=== PATIENT | female | born 1970 | race Caucasian/White ===

== ENCOUNTER → 2016-12-08 | Outpatient (CLI) | payer OTHER ==
--- NOTE | 2016-12-08 10:21 | MM ---
Reason for exam: clinical finding. Last mammogram was performed 7 years and 10 months ago. History: Family history of breast cancer in maternal aunt at age 60. Indicated problem(s): palpable abnormality in the right breast. 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 [facility] Diagnostic Mammo w CAD JULIANNA Bilateral CC and MLO view(s) were taken. Prior study comparison: February 18, 2009, left breast digital mammogram. April 13, 2008, mammogram, performed at [facility]. The breast tissue is heterogeneously dense. This may lower the sensitivity of mammography. Finding: There are typically benign round, regional calcifications in both breasts. These results were verbally communicated with the patient and result sheet given to the patient on 12/08/16. ASSESSMENT: Benign, BI-RAD 2 RECOMMENDATION: Routine screening mammogram of both breasts in 1 year.
--- NOTE | 2016-12-08 10:23 | USB ---
Reason for exam: clinical finding. History: Family history of breast cancer in maternal aunt at age 60. Indicated problem(s): palpable abnormality in the right breast. US Breast RT Right breast ultrasound including all four quadrants, the retroareolar region and axilla demonstrates a 0.5 x 0.4 x 0.5cm oval, cystic lesion at 1 o'clock, a 0.9 x 0.7 x 0.9cm oval, cystic lesion at 1 o'clock, a 0.4 x 0.4 x 0.4cm oval lesion too small to characterize at 5 o'clock, a 0.9 x 0.7 x 0.9cm oval, cystic lesion at 7 o'clock and a 0.6 x 0.6 x 0.5cm oval, cystic lesion with internal echo at 10 o'clock. Fibrocystic change. These results were verbally communicated with the patient and result sheet given to the patient on 12/08/16. ASSESSMENT: Benign, BI-RAD 2 RECOMMENDATION: Routine screening mammogram of both breasts in 1 year.
== END | disposition home or self-care (01) ==
LOC: RADMAMWWP 08:51
PROVIDERS: ATTEND Family Medicine
DX: N63 Unspecified lump in breast (principal); N64.4 Mastodynia
CPT/HCPCS: 76641; G0204

== ENCOUNTER 2021-06-30 08:13 | Day surgery (SDC) | payer OTHER ==
[2021-06-29 14:56] VITALS: BMI 31.6
[~2021-06-30 08:13] MED LIST: LACTATED RINGERS 1,000 ML IV SCH
[2021-06-30 09:02] VITALS: RESP 16; TEMP 96.6
[2021-06-30] MEDS ORDERED: ONDANSETRON 4 MG/2 ML VIAL IVP ONE (09:21)
[2021-06-30] MEDS ORDERED: ONDANSETRON 4 MG/2 ML VIAL ONE (09:22)
[2021-06-30] MEDS ORDERED: PROPOFOL 10 MG/ML 20 ML VIAL IV ONE (10:20)
--- NOTE | 2021-06-30 10:24 | P.GSHP ---
History of Present Illness H&P Date: 06/30/21 Chief Complaint: Screening colonoscopy 's 51-year-old female who presents today for screening colonoscopy. Patient denies any significant GI complaints. Past Medical History Past Medical History: GERD/Reflux, Hypertension Additional Past Medical History / Comment(s): hard to breathe at times when "belly is full and occas pain when swallowing"thyroid nodule and cysts on thyroid,change in bowel,discomfort in abdomen,hx kidney stones, bilateral ovarian cysts History of Any Multi-Drug Resistant Organisms: None Reported Past Surgical History: Breast Surgery, Cholecystectomy, Hysterectomy, Orthopedic Surgery Additional Past Surgical History / Comment(s): L elbow surg., cystoscopy, laparoscopy, alise fundoplasty for hiatal hernia in April 2014, breast biopsy Past Anesthesia/Blood Transfusion Reactions: Motion Sickness, Postoperative Nausea & Vomiting (PONV) Additional Past Anesthesia/Blood Transfusion Reaction / Comment(s): hx aspirating during EGD & acquiring pneumonia Smoking Status: Never smoker - Past Family History Mother Family Medical History: Cancer Father Family Medical History: Hypertension Sister(s) Family Medical History: Cancer, Diabetes Mellitus, Hypertension Additional Family Medical History / Comment(s): cervical CA Brother(s) Family Medical History: Diabetes Mellitus Medications and Allergies Home Medications Medication Instructions Recorded Confirmed Type hydroCHLOROthiazide [Hydrodiuril] 50 mg PO DAILY 12/13/15 06/29/21 History Losartan/Hydrochlorothiazide 1 tab PO DAILY 06/29/21 06/29/21 History [Losartan-Hctz 100-25 mg Tab] Meclizine HCl 25 mg PO DAILY PRN 06/29/21 06/29/21 History Ondansetron [Zofran] 4 mg PO Q8HR PRN 06/30/21 06/30/21 History Allergies Allergy/AdvReac Type Severity Reaction Status Date / Time codeine Allergy "blacked Verified 06/29/21 14:46 out" hydromorphone HCl Allergy Chest Pain Verified 06/29/21 14:46 [From Dilaudid] Penicillins Allergy Unknown Verified 06/30/21 08:59 Childhood Surgical - Exam Vital Signs Temp Pulse Resp BP Pulse Ox 96.6 F L 67 16 121/78 95 06/30/21 09:00 06/30/21 09:00 06/30/21 09:00 06/30/21 09:00 06/30/21 09:00 - General well developed, well nourished, no distress - Eyes PERRL - ENT normal pinna - Neck no masses - Respiratory normal expansion - Cardiovascular Rhythm: regular - Abdomen Abdomen: soft, non tender Assessment and Plan Assessment: We'll perform screening colonoscopy.
--- NOTE | 2021-06-30 10:46 | P.OP ---
Date of Procedure: 06/30/21 Preoperative Diagnosis: Constipation GERD Postoperative Diagnosis: Antral gastritis No evidence of hiatal hernia Mild diverticulosis Procedure(s) Performed: EGD Colonoscopy Anesthesia: MAC Surgeon: Anthony Jimenez Pathology: other Condition: stable Description of Procedure: Patient's placed on the endoscopy table in the lateral position. She received IV sedation. The gastroscope placed oropharynx passed in the esophagus into the stomach. Scope was then placed through the pylorus. First and second portion of the duodenum appeared normal. Scope summer back and the antrum this is minimally inflamed. A biopsies performed. Scope was unretroflexed and remainder stomach appeared normal. There is no significant hiatal hernia seen. The GE junction was at 40 cm. The distal esophagus appeared normal. The proximal esophagus. Normal. Scope was withdrawn for patient. Next digital rectal exam was performed which revealed no abnormalities. The flexible colonoscope was then placed patient anus and passed throughout the entire colon. The ileocecal valve was visualized. The cecum, ascending and transverse colon appeared normal. In the descending; was mild diverticular changes. Scope was then brought back the rectum and this appeared normal. Scope was withdrawn for patient.
[2021-06-30] MEDS ORDERED: IV FLUID CONTINUATION 100 ML IV ONE (10:49)
[2021-06-30 11:06] VITALS: BP 135/69; PULSE 49
== END 2021-06-30 11:53 | disposition home or self-care (01) ==
LOC: ORWHC2ENDO 08:13
PROVIDERS: ATTEND Surgery
DX: K29.50 Unspecified chronic gastritis without bleeding (principal); K57.90 Diverticulosis of intestine, part unspecified, without perforation or abscess without bleeding; K21.9 Gastro-esophageal reflux disease without esophagitis; I10 Essential (primary) hypertension; Z88.0 Allergy status to penicillin; Z88.5 Allergy status to narcotic agent; Z79.899 Other long term (current) drug therapy; Z87.442 Personal history of urinary calculi; Z82.49 Family history of ischemic heart disease and other diseases of the circulatory system; Z83.3 Family history of diabetes mellitus; Z90.49 Acquired absence of other specified parts of digestive tract
CPT/HCPCS: 45378; 43239; 81025; 88305; J2405; J2704

== ENCOUNTER 2021-07-18 18:15 | Emergency (ER) | payer OTHER ==
[2021-07-18] MEDS ORDERED: ACETAMINOPHEN TAB 325 MG TAB PO STA (20:18)
[2021-07-18] MEDS ORDERED: IBUPROFEN 600 MG TAB PO STA (20:18)
--- NOTE | 2021-07-18 20:42 | XR ---
EXAMINATION TYPE: XR chest 2V DATE OF EXAM: 07/18/2021 COMPARISON: 02/15/2016 HISTORY: Chest pain TECHNIQUE: 2 views FINDINGS: Heart and mediastinum are normal. Lungs are clear of consolidation. There is small linear d ensity right lung base. There are no hilar masses. Bony thorax is intact. IMPRESSION: Mild subsegmental atelectasis at the anterior right lung base. There is overall improved aeration of the lungs compared to old exam. Normal heart.
--- NOTE | 2021-07-18 20:43 | ED ---
General Adult HPI - General Chief complaint: Weakness Stated complaint: covid exposure, wants antibodies Time Seen by Provider: 07/18/21 20:01 Source: patient, RN notes reviewed Mode of arrival: ambulatory Limitations: no limitations - History of Present Illness Initial comments: Patient is a 51-year-old female that presents to emergency room complaining of fever, cough, headache, upper respiratory tract symptoms for the past several days. She notes that her and his cousin recently tested positive for Covid so she decided come in to get evaluated. She notes that she knew she was Covid-positive based off of her symptoms. She notes that she does want to the monoclonal antibodies. She was otherwise well-appearing in no distress. She de nied chest pain nausea vomiting diarrhea constipation fatigue chills. - Related Data Home Medications Medication Instructions Recorded Confirmed hydroCHLOROthiazide [Hydrodiuril] 50 mg PO DAILY 12/13/15 06/29/21 Losartan/Hydrochlorothiazide 1 tab PO DAILY 06/29/21 06/29/21 [Losartan-Hctz 100-25 mg Tab] Meclizine HCl 25 mg PO DAILY PRN 06/29/21 06/29/21 Ondansetron [Zofran] 4 mg PO Q8HR PRN 06/30/21 06/30/21 Allergies Allergy/AdvReac Type Severity Reaction Status Date / Time codeine Allergy "blacked Verified 07/18/21 19:10 out" hydromorphone HCl Allergy Chest Pain Verified 07/18/21 19:10 [From Dilaudid] Penicillins Allergy Unknown Verified 07/18/21 19:10 Childhood Review of Systems ROS Statement: Those systems with pertinent positive or pertinent negative responses have been documented in the HPI. ROS Other: All systems not noted in ROS Statement are negative. Past Medical History Past Medical History: GERD/Reflux, Hypertension Additional Past Medical History / Comment(s): hard to breathe at times when "belly is full and occas pain when swallowing"thyroid nodule and cysts on thyroid,change in bowel,discomfort in abdomen,hx kidney stones, bilateral ovarian cysts History of Any Multi-Drug Resistant Organisms: None Reported Past Surgical History: Breast Surgery, Cholecystectomy, Hysterectomy, Orthopedic Surgery Additional Past Surgical History / Comment(s): L elbow surg., cystoscopy, laparoscopy, alise fundoplasty for hiatal hernia in April 2014, breast biopsy Past Anesthesia/Blood Transfusion Reactions: Motion Sickness, Postoperative Nausea & Vomiting (PONV) Additional Past Anesthesia/Blood Transfusion Reaction / Comment(s): hx aspirating during EGD & acquiring pneumonia Past Psychological History: No Psychological Hx Reported Smoking Status: Never smoker Past Alcohol Use History: None Reported Past Drug Use History: None Reported - Past Family History Mother Family Medical History: Cancer Father Family Medical History: Hypertension Sister(s) Family Medical History: Cancer, Diabetes Mellitus, Hypertension Additional Family Medical History / Comment(s): cervical CA Brother(s) Family Medical History: Diabetes Mellitus General Exam Limitations: no limitations General appearance: alert, in no apparent distress Head exam: Present: atraumatic, normocephalic, normal inspection Eye exam: Present: normal appearance, PERRL, EOMI. Absent: scleral icterus, conjunctival injection, periorbital swelling ENT exam: Present: normal exam, mucous membranes moist Neck exam: Present: normal inspection. Absent: tenderness, meningismus, lymphadenopathy Cardiovascular Exam: Present: regular rate, normal rhythm, normal heart sounds. Absent: systolic murmur, diastolic murmur, rubs, gallop, clicks GI/Abdominal exam: Present: soft, normal bowel sounds. Absent: distended, tenderness, guarding, rebound, rigid Extremities exam: Present: normal inspection, full ROM, normal capillary refill. Absent: tenderness, pedal edema, joint swelling, calf tenderness Neurological exam: Present: alert, oriented X3 Psychiatric exam: Present: normal affect, normal mood Skin exam: Present: warm, dry, intact, normal color. Absent: rash Course Vital Signs 07/18/21 19:06 Temperature 98.6 F Pulse Rate 91 Respiratory 16 Rate Blood Pressure 141/86 O2 Sat by Pulse 96 Oximetry Medical Decision Making - Medical Decision Making 51-year-old female complaining of upper respiratory tract symptoms including fever fatigue cough. Covid test, chest x-ray ordered. Covid test positive. Chest x-ray shows no acute cardiopulmonary process. Patient wishes to undergo monoclonal antibody infusion. Patient's vital signs are stable. Case discussed with Dr. Shields, patient discharge home after infusion. - Lab Data Lab Results 07/18/21 Range/Units 19:49 Coronavirus (PCR) Detected A (Not Detectd) - Radiology Data Radiology results: report reviewed, image reviewed chest x-ray: Mild subsegmental atelectasis at the anterior right lung base. There is overall improved aeration of the lungs compared to old exam. Normal heart. Disposition Clinical Impression: COVID Disposition: HOME SELF-CARE Condition: Stable Instructions (If sedation given, give patient instructions): Coronavirus Disease 2019 (COVID-19) Additional Instructions: Please return to the Emergency Department if symptoms worsen or any other concerns. Follow-up with primary care 1-2 days. Take Tylenol and Motrin as needed for fevers. Increase oral fluids. Plan rest. Is patient prescribed a controlled substance at d/c from ED?: No Referrals: Theodora Bustillo DO [Primary Care Provider] - 1-2 days Time of Disposition: 20:44
[2021-07-18 21:15] VITALS: RESP 18
[2021-07-18] MEDS ORDERED: CASIRIVIMAB/IMDEVIMAB (EUA) 1,200 MG in SODIUM CHLORIDE 0.9% 100 ML IVPB ONE (21:30)
[2021-07-18] MEDS ORDERED: SODIUM CHLORIDE 0.9% 50 ML IVPB ONE (21:30)
[2021-07-18 23:55] VITALS: BP 133/76; PULSE 76; TEMP 98.1
== END 2021-07-18 23:53 | disposition home or self-care (01) ==
LOC: EC 18:15
DX: U07.1 COVID-19 (principal); I10 Essential (primary) hypertension; Z88.0 Allergy status to penicillin; Z88.5 Allergy status to narcotic agent; Z79.899 Other long term (current) drug therapy
CPT/HCPCS: 87635; 71046; 99285; 96365; Q0243